=== PATIENT | male | born 1960 | race Caucasian/White ===

== ENCOUNTER → 2022-01-22 | Outpatient (REF) | payer BC ==
[~2022-01-22] MED LIST: APAP500T10 PO; BENZ200C70 PO; CVS1CAP2 PO; ERGO500029 PO; FLOM0.4C39 PO; LISI10TA22 PO; LORA-243 PO; LOTE0.5S OD; OMEP1CAP73 PO; PRAV10TA3 PO; RA T500C2 PO; TRAM50TA2 PO; TUMS500C PO; VALT1TAB PO; nyquil PO
[2022-01-22 17:50] LABS: PLATELET COUNT, AUTOMATED 326 10^3/uL (150-450)
[2022-01-22 17:51] LABS: INR 1.11; PROTHROMBIN TIME 14.7 SECONDS (12.7-14.5)
== END ==
LOC: M LAB REF 17:01
PROVIDERS: ATTEND Internal Medicine Pulmonary Disease
DX: Z01.812 Encounter for preprocedural laboratory examination (principal)

== ENCOUNTER 2022-01-28 09:54 | Day surgery (SDC) | payer BC ==
[~2022-01-28] VITALS: Ht 180.3 cm; Wt 87.1 kg
[~2022-01-28 09:54] MED LIST changes: +ALBUTEROL SULFATE 2.5 MG/0.5 ML INH NEB SOLN INH ONE; +LIDOCAINE 4% INJ 5ML AMP INH ONE
[2022-01-28] MEDS ORDERED: LR 1,000 ML IV SCH ×3 (11:10→13:40)
[2022-01-28] MEDS ORDERED: SCOPOLAMINE 1MG TRANSDERMAL PATCH TOP ONE (12:35)
[2022-01-28] MEDS ORDERED: CETACAINE SPRAY 5GM As Ordered ONE (12:35)
[2022-01-28] MEDS ORDERED: EPINEPHrine 1MG/10ML SYRINGE 1.5IN As Ordered ONE (12:35)
[2022-01-28] MEDS ORDERED: THROMBIN SOLN 5,000 UNITS VIAL As Ordered ONE (12:35)
[2022-01-28] MEDS ORDERED: fentaNYL 100 MCG/2 ML INJECTION As Ordered ONE (12:48)
[2022-01-28] MEDS ORDERED: MIDAZOLAM INJ 2MG/2ML VIAL (J2250 PER 1MG) As Ordered ONE (12:48)
[2022-01-28] MEDS ORDERED: ROCURONIUM BROMIDE 50 MG/5 ML VIAL As Ordered ONE (12:48)
[2022-01-28] MEDS ORDERED: LIDOCAINE 2% INJ 100 MG/5 ML SYRINGE As Ordered ONE (12:48)
[2022-01-28] MEDS ORDERED: propofoL 200 MG/20 ML VIAL As Ordered ONE (12:48)
[2022-01-28] MEDS ORDERED: dexameTHASONE 4 MG/ML 1ML VIAL (J1100 PER 1MG) As Ordered ONE (13:18)
[2022-01-28] MEDS ORDERED: SUGAMMADEX SODIUM 500 MG/5 ML VIAL (BRIDION) As Ordered ONE (13:18)
[2022-01-28] MEDS ORDERED: ONDANSETRON 4MG 2ML VIAL As Ordered ONE (13:18)
[2022-01-28] MEDS ORDERED: PHENYLephrine 500MCG 5ML (100MCG/ML) SYRINGE As Ordered ONE (13:25)
[2022-01-28] MEDS ORDERED: fentaNYL 100 MCG/2 ML INJECTION IV PRN (13:40)
[2022-01-28] MEDS ORDERED: METOCLOPRAMIDE INJ 10MG/2ML VIAL (J2765 PER 1) IV PRN (13:40)
[2022-01-28] MEDS ORDERED: ONDANSETRON 4MG 2ML VIAL IV PRN (13:40)
[2022-01-28] MEDS ORDERED: oxyCODONE 5MG TAB PO PRN (13:40)
== END 2022-01-28 15:20 | disposition home or self-care (01) ==
LOC: M SDC 09:54
PROVIDERS: ATTEND Internal Medicine Pulmonary Disease
DX: R59.0 Localized enlarged lymph nodes (principal); R91.8 Other nonspecific abnormal finding of lung field; I10 Essential (primary) hypertension; E78.5 Hyperlipidemia, unspecified; R06.02 Shortness of breath; R05.9 Cough, unspecified; F32.A Depression, unspecified; K21.9 Gastro-esophageal reflux disease without esophagitis; N40.0 Benign prostatic hyperplasia without lower urinary tract symptoms; Z79.899 Other long term (current) drug therapy
CPT/HCPCS: 31629; 31654; 71045; 88173; 88305; 88341; 88342; J1100; J2250; J2370; J2405; J3010